=== PATIENT | male | born 1955 | race Caucasian/White ===

== ENCOUNTER 2018-11-17 20:38 | Emergency (ER) | payer OTHER ==
[~2018-11-17] VITALS: Ht 177.8 cm; Wt 102.1 kg
--- NOTE | 2018-11-17 21:00 | NUR ---
ED Nurse Note: PT DROVE HIMSELF FROM HOME TO ED, PT IS C/O OF RIGHT BIG TOE FOOT PAIN, PT TOE IS WRAPPED, PT TOE IS REDDENED AND WARM TO TOUCH, SLIGHT ABSCESS PRESENT
[2018-11-17] MEDS ORDERED: LOSARTAN POTASS25 MG ORAL (21:04)
[2018-11-17] MEDS ORDERED: HUMULIN N100 UNIT/1 SUBQ (21:04)
[2018-11-17] MEDS ORDERED: ATORVASTATIN CA20 MG ORAL (21:04)
[2018-11-17] MEDS ORDERED: BENAZEPRIL HCL5 MG ORAL (21:04)
[2018-11-17] MEDS ORDERED: SILVER SULFADIA10 GM MC (21:04)
[2018-11-17] MEDS ORDERED: METOPROLOL TART50 M1 ORAL (21:04)
[2018-11-17] MEDS ORDERED: HUMULIN R100 UNIT/1 SUBQ (21:04)
[2018-11-17] MEDS ORDERED: OMEPRAZOLE20 M2 ORAL (21:04)
[2018-11-17] MEDS ORDERED: GLIPIZIDE5 MG ORAL (21:04)
[2018-11-17] MEDS ORDERED: NAPROXEN250 M1 PO (21:04)
[2018-11-17] MEDS ORDERED: TRAMADOL HCL50 MG ORAL (21:04)
[2018-11-17] MEDS ORDERED: GABAPENTIN600 MG ORAL (21:04)
[2018-11-17] MEDS ORDERED: METFORMIN HCL500 M1 ORAL (21:04)
[2018-11-17] MEDS ORDERED: LANTUS SOL100 UNIT/1 SUBQ (21:04)
[2018-11-17] MEDS ORDERED: LORATADINE10 M1 PO (21:04)
[2018-11-17 21:25] LABS: BASOPHILS % (AUTO) 1.2 % (0.0-2.0); EOSINOPHILS % (AUTO) 0.7 % (0.0-3.0); HEMATOCRIT 40.3 % (42.0-52.0); HEMOGLOBIN 13.2 G/DL (14.2-18.0); LYMPHOCYTES % (AUTO) 17.2 % (20.0-45.0); MEAN CORPUSCULAR VOLUME 91 FL (80-99); MONOCYTES % (AUTO) 6.7 % (1.0-10.0); NEUTROPHILS % (AUTO) 74.3 % (45.0-75.0); PLATELET COUNT 281 K/UL (150-450); RED BLOOD COUNT 4.44 M/UL (4.70-6.10); RED CELL DISTRIBUTION WIDTH 12.5 % (11.6-14.8); WHITE BLOOD COUNT 13.9 K/UL (4.8-10.8)
[2018-11-17] MEDS: cefTRIAXone 1 GM in NS 55 ML IVPB ONE (21:35)
[2018-11-17 21:38] LABS: ANION GAP 10 mmol/L (5-15); BLOOD UREA NITROGEN 32 mg/dL (7-18); CALCIUM 9.2 MG/DL (8.5-10.1); CARBON DIOXIDE 25 MMOL/L (21-32); CHLORIDE 103 MMOL/L (98-107); CREATININE 1.9 MG/DL (0.55-1.30); POTASSIUM 4.9 MMOL/L (3.5-5.1); SODIUM 138 MMOL/L (136-145)
--- NOTE | 2018-11-17 21:51 | Emergency Room Report ---
History of Present Illness General Chief Complaint: Lower Extremity Injury Source: Patient Present Illness [facility] This is a 63-year-old male with a history of diabetes. He presents with chief complaint of right great toe pain and redness. Onset for about a week and a half. Unknown trauma. Skin he worse now. More drainage and redness tracking up the foot. Pain with walking. No fever chills but no nausea no vomiting. He went to [facility] today. Had blood work done and x-ray done. It appeared that he had x-ray done also. He was to be transferred to another hospital. Sound like [facility]. Patient signed out AMA and and drove here. He thinks that by coming here he will be admitted here. Allergies: Uncoded Allergies: PENICILLIN (Allergy, Unknown, 11/17/18) Patient History Past Medical History: see triage record, old chart reviewed, DM Past Surgical History: other Pertinent Family History: none Social History: Denies: smoking Immunizations: other Reviewed Nursing Documentation: PMH: Agreed; PSxH: Agreed Nursing Documentation-PMH Hx Diabetes: Yes Hx Gastrointestinal Problems: Yes - gerd Review of Systems Eye: Denies: eye pain, blurred vision ENT: Denies: ear pain, nose congestion, throat swelling Respiratory: Denies: cough, shortness of breath Cardiovascular: Denies: chest pain, palpitations Gastrointestinal: Denies: abdominal pain, diarrhea, nausea, vomiting Musculoskeletal: Reports: joint pain, muscle pain; Denies: back pain Skin: Denies: rash Neurological: Denies: headache, numbness Endocrine: Denies: increased thirst, increased urine Hematologic/Lymphatic: Denies: easy bruising All Other Systems: negative except mentioned in HPI Physical Exam Vital Signs Date Time Temp Pulse Resp B/P (MAP) Pulse Ox O2 Delivery O2 Flow Rate FiO2 11/17/18 20:49 98.2 97 16 140/81 93 Room Air vitals normal Sp02 EP Interpretation: reviewed, normal General Appearance: well appearing, no apparent distress, alert Head: normocephalic, atraumatic Eyes: bilateral eye PERRL, bilateral eye EOMI ENT: hearing grossly normal, normal pharynx Neck: full range of motion, supple, no meningismus Respiratory: chest non-tender, lungs clear, normal breath sounds Cardiovascular #1: regular rate, rhythm, no murmur Gastrointestinal: normal bowel sounds, non tender, no mass, no organomegaly, no bruit, non-distended Musculoskeletal: back normal, gait/station normal, normal range of motion, other - Right foot: Great toe has edema erythema. There is some draining ulcer on the medial aspect of the toe. There is eschar on the volar aspect of the pad. There is erythema tracking up to the midfoot. Decreased pulse. Psychiatric: mood/affect normal Skin: warm/dry Medical Decision Making Diagnostic Impression: Primary Impression: Cellulitis and abscess of toe of right foot ER Course Patient presents with infected diabetic foot/toe ulcer. Antibiotics given here. Patient warrant admission for IV antibiotics. He is stable for transfer. Patient insurance want to send him to [facility]. Patient refused. He said he rather go home. He was to go to either [place] or [facility]. Explained to the patient that his insurance does not have contract with those hospital or they do not have room. He said he rather go home. He said he will probably drive to [facility]. Patient is competent to sign out AGAINST MEDICAL ADVICE. I explained the risk of him leaving. Infection may get worse when he may lose the foot. He may get bacteremic and be life-threatening. He still want to leave AMA. Lab Results Impression labs with elevated WBC Other X-Ray Diagnostic Results Other X-Ray Diagnostic Results : X-Ray ordered: X-ray foot # of Views/Limited Vs Complete: 3 View Indication: Pain EP Interpretation: Yes Interpretation: no dislocation, no fractures, nonspecific bowel gas, other - STS Impression: Other - STS Electronically Signed by: Yonathan Bocanegra MD Last Vital Signs Date Time Temp Pulse Resp B/P (MAP) Pulse Ox O2 Delivery O2 Flow Rate FiO2 11/17/18 20:49 98.2 97 16 140/81 93 Room Air Status: improved Disposition: AGAINST MEDICAL ADVICE Condition: Stable Scripts Clindamycin Hcl (CLINDAMYCIN HCL) 300 Mg Capsule 300 MG ORAL THREE TIMES A DAY, #21 CAP Prov: Yonathan Bocanegra MD 11/17/18 Additional Instructions: You have a bad infection of your toe and foot. This may lead to amputation or if worsen, infection to the bloodstream. This can be life-threatening. Your leaving against my medical advice for admission. Return if you change your mind. Yonathan Bocanegra MD Nov 17, 2018 21:51
[2018-11-17] MEDS ORDERED: CLINDAMYCIN HC300 MG ORAL (23:13)
[2018-11-17 23:18] VITALS: BP 138/87
--- NOTE | 2018-11-17 23:18 | NUR ---
ED Nurse Note: PT IS LEAVING AMA, PT DOES NOT WANT TO TRANSFERRED TO [facility] BASED ON HIS INSURANCE, ERMD, NOTIFIED PT OF RISKS OF AMA, PT VSS AT THE MOMENT, IV SITE AND ID BAND REMOVED, PT TOE WAS RE DRESSEED, PT BROUGHT ALL BELONIGNGS AMA FORM SIGNED.
--- NOTE | 2018-11-18 08:57 | Diagnostic Imaging Report ---
Indication: Foot pain Technique: 3 views right foot Comparison: none Findings: There are plantar and calcaneal spurs. No acute fractures. No dislocations. The joint spaces are preserved. Impression: Negative
== END 2018-11-17 23:18 | disposition left against medical advice (07) ==
LOC: EMR 21:30
DX: L03.031 Cellulitis of right toe (principal); E11.621 Type 2 diabetes mellitus with foot ulcer; M79.10 Myalgia, unspecified site; M25.50 Pain in unspecified joint; Z53.21 Procedure and treatment not carried out due to patient leaving prior to being seen by health care provider; Z88.0 Allergy status to penicillin
CPT/HCPCS: 36415; 73630; 80048; 85025; 96365; 99284; J0696